=== PATIENT | male | born 1970 | race Caucasian/White ===

== ENCOUNTER 2018-05-30 09:18 | Emergency (ER) | payer OTHER, SELFPAY ==
[2018-05-30 09:27] VITALS: BMI 24.3
[2018-05-30 09:30] VITALS: TEMP 98.2
--- NOTE | 2018-05-30 10:07 | C.PDOC ---
History Of Present Illness Pt c/o posterior right elbow swelling. Time Seen by Provider: 05/30/18 09:33 Chief Complaint (Nursing): Upper Extremity Problem/Injury History Per: Patient Onset/Duration Of Symptoms: Days (about 3 weeks) Current Symptoms Are (Timing): Still Present Quality: Other (swelling) Severity: Moderate Additional History Per: Prior Records Past Medical History Reviewed: Historical Data, Nursing Documentation, Vital Signs Vital Signs: Last Vital Signs Temp 98.2 F 05/30/18 09:27 Pulse 60 05/30/18 09:27 Resp 18 05/30/18 09:27 BP 125/79 05/30/18 09:27 Pulse Ox 97 05/30/18 09:27 - Medical History PMH: No Chronic Diseases Family History: States: Unknown Family Hx - Social History Hx Tobacco Use: No Hx Alcohol Use: Yes Hx Substance Use: No - Immunization History Hx Tetanus Toxoid Vaccination: No Hx Influenza Vaccination: No Hx Pneumococcal Vaccination: No Review Of Systems Except As Marked, All Systems Reviewed And Found Negative. Constitutional: Negative for: Fever Cardiovascular: Negative for: Chest Pain Respiratory: Negative for: Shortness of Breath Gastrointestinal: Negative for: Vomiting, Abdominal Pain Musculoskeletal: Negative for: Neck Pain, Shoulder Pain, Hand Pain Skin: Negative for: Rash Neurological: Negative for: Weakness, Numbness Physical Exam - Physical Exam Appears: Non-toxic, No Acute Distress Skin: Normal Color, Warm, Dry, No Rash Head: Atraumatic, Normacephalic Eye(s): bilateral: Normal Inspection, PERRL, EOMI Neck: Normal ROM, Supple Extremity: Normal ROM, No Tenderness, Capillary Refill (wnl), No Deformity, Swelling (of right olecranon bursa.), Other (No erythema or warmth.) Extremity: Bilateral: Normal Color And Temperature Pulses: Right Radial: Normal Neurological/Psych: Oriented x3, Normal Motor, Normal Sensation ED Course And Treatment O2 Sat by Pulse Oximetry: 97 Pulse Ox Interpretation: Normal - Other Rad Right elbow x-rays X-Ray: Interpreted by Me, Viewed By Me Interpretation: No acute fx. Disposition Counseled Patient/Family Regarding: Studies Performed, Diagnosis, Need For Followup, Rx Given - Disposition Referrals: [facility] at [facility] [Outside] Marcie Flowers MD [Staff Provider] - Disposition: HOME/ ROUTINE Disposition Time: 10:08 Condition: STABLE Additional Instructions: Follow up with an orthopedic doctor or in the clinic for further evaluation and treatment. Return to the ER if you develop fever, redness, worsening of symptoms or if you have any other concerns. Prescriptions: Naproxen [Naprosyn] 1 tab PO BID PRN #20 tab PRN Reason: Pain Instructions: Olecranon Bursitis (DC) Print Language: PERSIAN - Clinical Impression Clinical Impression: Olecranon bursitis, right elbow
--- NOTE | 2018-05-30 10:17 | RAD ---
PROCEDURE: Radiographs of the right elbow. HISTORY: Swelling around olecranon. r/o fx / joint effusion COMPARISON: No prior. FINDINGS: BONES: Bone alignment and mineralization are normal. There is no acute displaced fracture or bone destruction. JOINTS: Normal. No osteoarthritis. SOFT TISSUES: There is moderate soft tissue swelling overlying the olecranon process. JOINT EFFUSION: None. OTHER FINDINGS: None. IMPRESSION: No acute displaced fracture, dislocation or joint effusion. Moderate soft tissue swelling overlying the olecranon process could represent olecranon bursitis in the appropriate clinical setting.
[2018-05-30 10:18] VITALS: BP 122/70; PULSE 66; RESP 16; O2SAT 98
== END 2018-05-30 10:17 | disposition home or self-care (01) ==
LOC: C.ER 09:18
DX: M70.21 Olecranon bursitis, right elbow (principal)

== ENCOUNTER 2018-06-15 14:59 | Emergency (ER) | payer SELFPAY ==
[2018-06-15 14:59] VITALS: BMI 24.3
[2018-06-15 15:06] VITALS: BP 119/76; PULSE 100; TEMP 98.2; O2SAT 96
--- NOTE | 2018-06-15 15:20 | C.PDOC ---
History Of Present Illness 47 year old male presents to the ER complaining of pain and swelling to the right elbow after bumping it against the wall one month ago. Patient was in the ER with same presentation on 05/30/18 where he was diagnosed with olecranon bursitis. Patient reports he went to the clinic and was seen by the mobile marketing specialist but pain persists. He denies any fevers, weakness, numbness, or any other associated symptoms. No new trauma. Time Seen by Provider: 06/15/18 15:15 Chief Complaint (Nursing): Upper Extremity Problem/Injury History Per: Patient, Family History/Exam Limitations: no limitations Onset/Duration Of Symptoms: Days Current Symptoms Are (Timing): Still Present Past Medical History Reviewed: Historical Data, Nursing Documentation, Vital Signs Vital Signs: Last Vital Signs Temp 98.2 F 06/15/18 15:01 Pulse 100 H 06/15/18 15:01 Resp 17 06/15/18 15:36 BP 119/76 06/15/18 15:01 Pulse Ox 96 06/15/18 16:01 - Medical History PMH: No Chronic Diseases Surgical History: No Surg Hx Family History: States: No Known Family Hx - Social History Hx Tobacco Use: No Hx Alcohol Use: No Hx Substance Use: No - Immunization History Hx Tetanus Toxoid Vaccination: No Hx Influenza Vaccination: No Hx Pneumococcal Vaccination: No Review Of Systems Except As Marked, All Systems Reviewed And Found Negative. Musculoskeletal: Positive for: Other (Right elbow pain) Neurological: Negative for: Weakness, Numbness Physical Exam - Physical Exam Appears: Non-toxic, No Acute Distress Skin: Normal Color, Warm, Dry Head: Atraumatic, Normacephalic Eye(s): bilateral: Normal Inspection, EOMI Nose: Normal Oral Mucosa: Moist Neck: Normal ROM, Supple Chest: Symmetrical Respiratory: No Accessory Muscle Use, Other (Speaking full sentences ) Extremity: Normal ROM (Right elbow), No Tenderness, Capillary Refill (<2 sec), Swelling (swelling to right bursa, no erythema) Extremity: Bilateral: Normal Color And Temperature Pulses: Left Radial: Normal, Right Radial: Normal Neurological/Psych: Oriented x3, Normal Speech, Normal Motor (5/5 strength against resistance ), Normal Sensation Gait: Steady ED Course And Treatment O2 Sat by Pulse Oximetry: 96 (RA) Pulse Ox Interpretation: Normal Progress Note: Previous XR reviewed and copy given to pt. Patient instructed to ice and rest right elbow. Patient instructed to follow up with product support specialist in 1-2 days. Disposition - Disposition Referrals: [facility] at [facility] [Outside] Kris Saldana MD [Staff Provider] - Disposition: HOME/ ROUTINE Disposition Time: 15:20 Condition: STABLE Additional Instructions: Rest and ice the north. Follow up with the bone doctor in 1-2 days. Descanse y hiele el north. Marco un seguimiento con el mdico de los huesos en 1-2 sauceda. Instructions: Olecranon Bursitis (DC) Forms: [employer] (Belizean) Print Language: SLOVENIAN - Clinical Impression Clinical Impression: Olecranon bursitis, right elbow - PA / MATERIAL SPREADER / Resident Statement MD/DO has reviewed & agrees with the documentation as recorded. - Scribe Statement The provider has reviewed the documentation as recorded by the Scribe Michela Almanza All medical record entries made by the Scribe were at my direction and personally dictated by me. I have reviewed the chart and agree that the record accurately reflects my personal performance of the history, physical exam, medical decision making, and the department course for this patient. I have also personally directed, reviewed, and agree with the discharge instructions and disposition.
[2018-06-15 15:36] VITALS: RESP 17
== END 2018-06-15 15:36 | disposition home or self-care (01) ==
LOC: C.ER 14:59
DX: M70.21 Olecranon bursitis, right elbow (principal)

== ENCOUNTER 2019-03-03 18:59 | Emergency (ER) | payer SELFPAY ==
[2019-03-03 18:59] VITALS: BMI 24.3
[2019-03-03 19:11] VITALS: O2SAT 97
[2019-03-03 23:17] LABS: ALB/GLOB RATIO 1.7 (1.0-2.1); ALBUMIN 4.1 g/dL (3.5-5.0); ALT/SGPT 39 U/L (21-72); AST/SGOT 42 U/L (17-59); BLOOD UREA NITROGEN 20 mg/dL (9-20); GFR NON-AFRICAN AMERICAN > 60; LIPASE 92 U/L (23-300)
[2019-03-03 23:44] LABS: BASO % 0.3 % (0.0-2.0); EOS # 0.1 K/uL (0.0-0.7); EOS % 2.1 % (0.0-4.0); HEMOGLOBIN 16.8 g/dL (12.0-18.0); LYMPH # 1.8 K/uL (1.0-4.3); LYMPH % 37.4 % (20.0-40.0); MEAN CELL VOLUME 97.8 fL (80.0-94.0); MEAN CORPUSCULAR HEMOGLOBIN 33.7 pg (27.0-31.0); MEAN CORPUSCULAR HGB CONC 34.5 g/dL (33.0-37.0); MEAN PLATELET VOLUME 12.1 fL (7.2-11.7); MONO # 0.4 K/uL (0.0-0.8); MONO % 8.9 % (0.0-10.0); NEUT # 2.5 K/uL (1.8-7.0); NEUT % 51.3 % (50.0-75.0); RBC 4.98 Mil/uL (4.40-5.90); RED CELL DISTRIBUTION WIDTH 12.4 % (11.5-14.5); WHITE BLOOD COUNT 4.9 K/uL (4.8-10.8)
[2019-03-04] MEDS ORDERED: Iodixanol 320 MG/ML 100 ML BOTTLE IV ONE (00:26)
--- NOTE | 2019-03-04 00:42 | C.PDOC ---
History Of Present Illness Patient reports diffuse abdominal pain for the past two days. Denies nausea, vomiting, diarrhea, fever, hematuria, urinary frequency, dysuria, or any other symptoms. Also reports seeing blood in his stool today. Time Seen by Provider: 03/03/19 21:38 Chief Complaint (Nursing): Abdominal Pain Past Medical History Reviewed: Historical Data, Nursing Documentation, Vital Signs Vital Signs: Last Vital Signs Temp 97.9 F 03/03/19 19:06 Pulse 63 03/03/19 19:06 Resp 18 03/03/19 19:06 BP 133/76 03/03/19 19:06 Pulse Ox 97 03/03/19 19:06 ALEXANDER Report Viewed: Yes - Medical History PMH: Denies: Chronic Kidney Disease Family History: States: Unknown Family Hx - Social History Hx Tobacco Use: No Hx Alcohol Use: Yes Hx Substance Use: No - Immunization History Hx Tetanus Toxoid Vaccination: No Hx Influenza Vaccination: No Hx Pneumococcal Vaccination: No Review Of Systems Except As Marked, All Systems Reviewed And Found Negative. Constitutional: Negative for: Fever, Chills Cardiovascular: Negative for: Chest Pain Respiratory: Negative for: Shortness of Breath Gastrointestinal: Positive for: Abdominal Pain, Hematochezia. Negative for: Nausea, Vomiting, Diarrhea Genitourinary: Negative for: Dysuria, Frequency Skin: Negative for: Rash Neurological: Negative for: Altered Mental Status Physical Exam - Physical Exam Appears: Well, Non-toxic, No Acute Distress Skin: Normal Color, Warm, Dry Head: Atraumatic, Normacephalic Eye(s): bilateral: Normal Inspection Cardiovascular: Rhythm Regular Respiratory: Normal Breath Sounds Gastrointestinal/Abdominal: Soft, Tenderness (minimal diffuse) Rectal: Heme Negative, No Melena, No Blood Streaked Stool, No Hemorrhoids, No Mass, No Tenderness Neurological/Psych: Oriented x3, Normal Speech ED Course And Treatment - Laboratory Results Result Diagrams: 03/03/19 23:05 03/03/19 22:57 Lab Results: Total Bilirubin 0.7 mg/dL (0.2-1.3) 03/03/19 22:57 AST 42 U/L (17-59) 03/03/19 22:57 ALT 39 U/L (21-72) 03/03/19 22:57 Alkaline Phosphatase 50 U/L (38-126) 03/03/19 22:57 Total Protein 6.5 g/dL (6.3-8.3) 03/03/19 22:57 Albumin 4.1 g/dL (3.5-5.0) 03/03/19 22:57 Globulin 2.4 gm/dL (2.2-3.9) 03/03/19 22:57 Albumin/Globulin Ratio 1.7 (1.0-2.1) 03/03/19 22:57 Lipase 92 U/L (23-300) 03/03/19 22:57 O2 Sat by Pulse Oximetry: 97 (ON RA) Pulse Ox Interpretation: Normal - CT Scan/US CT abd/pelvis Other Rad Studies (CT/US): Read By Radiologist, Radiology Report Reviewed CT/US Interpretation: CT SCAN OF THE ABDOMEN AND PELVIS WITH CONTRAST. CLINICAL HISTORY: Lower abdominal pain. TECHNIQUE: Multiple axial and coronal CT images were obtained through the abdomen and pelvis after administration of intravenous contrast material. COMMENTS: Diffuse colonic diverticulosis. Mild apparent thickening of the distal sigmoid colon. The liver is of uniform attenuation without mass or defect. There is no intra or extrahepatic biliary ductal dilatation. The spleen is normal. The gallbladder is within normal limits. The pancreas is of normal contour and attenuation characteristics. There is no evidence of adrenal mass. Both kidneys demonstrate prompt and equal ne phrograms. The kidneys are normal in size, shape and configuration. There is no evidence of renal or ureteral mass. No renal or ureteral calculi are identified. There is no hydroureter or hydronephrosis. No evidence for appendicitis. No evidence for small or large bowel obstruction. There is no evidence of abdominal ascites or lymphadenopathy. There is no evidence of intrinsic or extrinsic bladder mass. There is no pelvic ascites or lymphadenopathy. Images of the lung bases show no evidence of pleural or parenchymal mass. There are no pleural effusions. The bony structures are free of lytic or blastic lesions. IMPRESSION: Diffuse colonic diverticulosis. Mild apparent thickening of the distal sigmoid colon. Underdistention, spasm versus mild colitis. Thank you for your kind referral of this patient. . Electronically signed on Mar 04, 2019 1:04:11 AM EDT by: Royce Wright M.D., Certified by ABR, MSK, Neuroradiology Medical Decision Making Medical Decision Making: Patient given toradol ivp for pain. On re-eval patient lying in stretcher comfortably, in no distress. Lab and CT results discussed with patient. Stable for discharge home. Disposition - Disposition Disposition: HOME/ ROUTINE Disposition Time: 01:00 Condition: STABLE Additional Instructions: TANESHA WHITNEY, thank you for letting us take care of you today. Your provider was Lyssa Gomez MD and you were treated for STOMACH PAINS. The emergency medical care you received today was directed at your acute symptoms. If you were prescribed any medication, please fill it and take as directed. It may take several days for your symptoms to resolve. Return to the Emergency Department if your symptoms worsen, do not improve, or if you have any other problems. Please contact your doctor or call one of the physicians/clinics you have been referred to that are listed on the Patient Visit Information form that is included in your discharge packet. Bring any paperwork you were given at discharge with you along with any medications you are taking to your follow up visit. Our treatment cannot replace ongoing medical care by a primary care provider outside of the emergency department. Thank you for allowing the [facility] team to be part of your care today. If you had an X-Ray or CT scan: A Radiologist will review the ED reading if any change in treatment is needed we will contact you. If you had a blood, urine, or wound culture: It will take several days for the results, if any change in treatment is needed we will contact you. If you had an STI test: It will take 48 hours for the results. Please call after 1 week if you have not heard back. Instructions: Diverticulosis (DC) Forms: [employer] (Maltese) Print Language: CITIZEN OF [place] - Clinical Impression Clinical Impression: Diverticulosis
[2019-03-04 02:02] VITALS: RESP 20; TEMP 98.3
[2019-03-04 02:05] VITALS: BP 128/76; PULSE 90
--- NOTE | 2019-03-04 10:02 | CT ---
CT abdomen and pelvis History: Abdominal pain. Comparison: 07/08/2014 Technique: Multiple contiguous axial images were performed through the abdomen and pelvis with the use of intravenous contrast. Subsequently, sagittal and coronal reformatted images were obtained. This CT exam was performed using one or more of the following dose reduction techniques: Automated exposure control, adjustment of the mA and/or kV according to patient size, and/or use of iterative reconstruction technique. Findings: Scattered atelectasis at the lung bases and within the lingula. No pleural or pericardial effusion. Prominent liver with diffuse fatty infiltration. Focal area of low attenuation seen adjacent to the ligamentum teres measuring up 1.3 centimeters which may represent focal fatty sparing. Additional etiologies not excluded. Correlation with multiphasic contrast enhanced CT or MR may be helpful for further evaluation if clinically indicated. Contracted gallbladder. Spleen is preserved. Adrenal glands are preserved. Pancreas is preserved. Upper abdominal bowel is grossly preserved. Right kidney: No calculi or hydronephrosis. Left Kidney: No calculi or hydronephrosis. Urinary bladder is preserved. Heterogeneous and prominent prostate and seminal vesicles. Clinical correlation. Underdistended and or mildly thickened distal sigmoid colon. Fecal retention in the right and transverse colon. Appendix is within normal limits. Few shotty para-aortic and inguinal lymph nodes. Few shotty mesenteric lymph nodes. Degenerative changes in the spine. 1.3 centimeter rounded fat containing nodule in the midline lower pelvis on series 3, image 158, nonspecific. Impression: 1. Underdistention and or mild thickening of the distal sigmoid colon. Clinical correlation. 2. 1.3 centimeter rounded fat containing nodule in the midline lower pelvis on series 3, image 158, nonspecific. 3. Prominent liver with diffuse fatty infiltration. Focal area of low attenuation seen adjacent to the ligamentum teres measuring up 1.3 centimeters which may represent focal fatty sparing. Additional etiologies not excluded. Correlation with multiphasic contrast enhanced CT or MR may be helpful for further evaluation if clinically indicated. Additional findings as above. A preliminary report was generated at 1:04 a.m. on 03/04/[address] Royce Wright from [employer].
== END 2019-03-04 01:50 | disposition home or self-care (01) ==
LOC: C.ER 18:59
DX: K57.90 Diverticulosis of intestine, part unspecified, without perforation or abscess without bleeding (principal)
CPT/HCPCS: 74177; 80053; 83690; 85025; 99285; Q9967

== ENCOUNTER 2019-04-01 17:15 | Emergency (ER) | payer SELFPAY ==
[2019-04-01 17:15] VITALS: BMI 24.3
[2019-04-01] MEDS ORDERED: Sodium Chloride 0.9% 1,000 ML IV ONE (19:10)
[2019-04-01] MEDS ORDERED: Iohexol 240 (50 ml) PO ONE (19:11)
--- NOTE | 2019-04-01 19:15 | C.PDOC ---
History Of Present Illness 48 y/o male presents to ED for abdominal pain thats been on and off about for the past week, with rectal bleeding. Patient denies nausea, vomiting, dysuria. Patient had a CT scan last week that showed colitis. Chief Complaint (Nursing): Abdominal Pain History Per: Patient History/Exam Limitations: no limitations Onset/Duration Of Symptoms: Days Current Symptoms Are (Timing): Still Present Past Medical History Reviewed: Historical Data, Nursing Documentation, Vital Signs Vital Signs: Last Vital Signs Temp 98.4 F 04/01/19 17:18 Pulse 65 04/01/19 17:18 Resp 20 04/01/19 17:18 BP 112/76 04/01/19 17:18 Pulse Ox 98 04/01/19 17:18 Primary Care Provider: Dorota Spangler - Medical History PMH: Denies: Chronic Kidney Disease Family History: States: No Known Family Hx - Social History Hx Tobacco Use: No Hx Alcohol Use: No Hx Substance Use: No - Immunization History Hx Tetanus Toxoid Vaccination: Yes Hx Influenza Vaccination: No Hx Pneumococcal Vaccination: No Review Of Systems Except As Marked, All Systems Reviewed And Found Negative. Constitutional: Negative for: Fever, Chills Gastrointestinal: Positive for: Abdominal Pain, Other (Rectal bleeding). Negative for: Nausea, Vomiting Genitourinary: Negative for: Dysuria, Hematuria Musculoskeletal: Negative for: Back Pain Physical Exam - Physical Exam Appears: Non-toxic, No Acute Distress Skin: Warm, Dry Head: Atraumatic Eye(s): bilateral: Normal Inspection Oral Mucosa: Moist Neck: Supple Cardiovascular: Rhythm Regular, No Murmur Respiratory: Normal Breath Sounds, No Rales, No Rhonchi, No Wheezing Gastrointestinal/Abdominal: Soft, Tenderness (RUQ tenderness, mild bilateral lower quadrant tenderness) Rectal: No Blood Streaked Stool, Hemorrhoids (external hemorrhoid) Extremity: Bilateral: Normal ROM Neurological/Psych: Oriented x3, Normal Speech ED Course And Treatment - Laboratory Results Result Diagrams: 04/01/19 19:36 04/01/19 19:36 O2 Sat by Pulse Oximetry: 98 (RA) Pulse Ox Interpretation: Normal Medical Decision Making Medical Decision Making: Plan: --Abd/Pel CT --Labs --IV fluids 1L --Omnipaque PO Disposition Counseled Patient/Family Regarding: Diagnosis - Disposition Referrals: [facility] [Outside] Disposition: HOME/ ROUTINE Disposition Time: 23:04 Condition: STABLE Prescriptions: Dicyclomine [Bentyl] 10 mg PO QID #14 cap Instructions: Diverticulosis (DC), Bloody Stools, Adult (DC) Forms: [employer] (Citizen Of [place]) Print Language: VIETNAMESE - Clinical Impression Clinical Impression: Rectal bleeding, Diverticulosis - Scribe Statement The provider has reviewed the documentation as recorded by the Clarita Mendoza Provider Attestation: All medical record entries made by the Clarita were at my direction and personally dictated by me. I have reviewed the chart and agree that the record accurately reflects my personal performance of the history, physical exam, medical decision making, and the department course for this patient. I have also personally directed, reviewed, and agree with the discharge instructions and disposition.
[2019-04-01] MEDS ORDERED: Iohexol 240 (50 ml) ONE (19:38)
[2019-04-01] MEDS ORDERED: Sodium Chloride 0.9% 1,000 ML ONE (19:39)
[2019-04-01 19:44] LABS: BASO % 0.6 % (0.0-2.0); EOS # 0.1 K/uL (0.0-0.7); EOS % 2.6 % (0.0-4.0); HEMOGLOBIN 16.7 g/dL (12.0-18.0); LYMPH # 1.7 K/uL (1.0-4.3); LYMPH % 37.7 % (20.0-40.0); MEAN CELL VOLUME 96.2 fL (80.0-94.0); MEAN CORPUSCULAR HEMOGLOBIN 33.3 pg (27.0-31.0); MEAN CORPUSCULAR HGB CONC 34.6 g/dL (33.0-37.0); MEAN PLATELET VOLUME 12.2 fL (7.2-11.7); MONO # 0.5 K/uL (0.0-0.8); MONO % 10.2 % (0.0-10.0); NEUT # 2.2 K/uL (1.8-7.0); NEUT % 48.9 % (50.0-75.0); NRBC % 0.1 % (0.0-2.0); RBC 5.01 Mil/uL (4.40-5.90); RED CELL DISTRIBUTION WIDTH 12.3 % (11.5-14.5); WHITE BLOOD COUNT 4.5 K/uL (4.8-10.8)
[2019-04-01 19:59] LABS: INR 1.2; PROTHROMBIN TIME 13.5 SECONDS (9.7-12.2)
[2019-04-01 20:01] LABS: ALB/GLOB RATIO 1.7 (1.0-2.1); ALBUMIN 4.1 g/dL (3.5-5.0); ALT/SGPT 107 U/L (21-72); AST/SGOT 80 U/L (17-59); BLOOD UREA NITROGEN 18 mg/dL (9-20); CALCIUM 8.8 mg/dl (8.6-10.4); GFR NON-AFRICAN AMERICAN > 60; LIPASE 96 U/L (23-300)
[2019-04-01] MEDS ORDERED: Iodixanol 320 MG/ML 100 ML BOTTLE IV ONE (21:14)
[2019-04-01 21:50] VITALS: PULSE 60
[2019-04-01 23:20] VITALS: BP 121/81; RESP 18; TEMP 97.6; O2SAT 99
--- NOTE | 2019-04-02 08:44 | CT ---
Date of service: 04/01/2019 PROCEDURE: CT Abdomen and Pelvis with contrast HISTORY: Abdominal pain COMPARISON: 03/04/2019 TECHNIQUE: Multiple contiguous axial images were performed through the abdomen and pelvis with the use of intravenous contrast. Subsequently, sagittal and coronal reformatted images were obtained. Radiation dose: Total exam DLP = 613.03 mGy-cm. This CT exam was performed using one or more of the following dose reduction techniques: Automated exposure control, adjustment of the mA and/or kV according to patient size, and/or use of iterative reconstruction technique. FINDINGS: LOWER THORAX: Atelectasis at the lung bases. LIVER: Prominent liver with diffuse fatty infiltration. Again identified is a focal area of low attenuation seen adjacent to the ligamentum teres best seen on series 3 images 35 through 40 measuring 1.3 centimeters. This is of uncertain clinical etiology. This may represent some focal fatty sparing. Additional etiologies not excluded. Correlation with multiphasic contrast enhanced CT or MR may be helpful for further evaluation if clinically indicated. GALLBLADDER AND BILE DUCTS: Contracted gallbladder. PANCREAS: Unremarkable. No gross lesion or ductal dilatation. SPLEEN: Unremarkable. ADRENALS: Unremarkable. No mass. KIDNEYS AND URETERS: Unremarkable. No hydronephrosis. No solid mass. VASCULATURE: Unremarkable. No aortic aneurysm. No aortic atherosclerotic calcification or mural plaque present. BOWEL: Unremarkable. No obstruction. No gross mural thickening. Colonic diverticulosis. Moderate fecal retention in the colon. APPENDIX: Normal appendix. PERITONEUM: Unremarkable. No free fluid. No free air. LYMPH NODES: Few shotty para-aortic and inguinal lymph nodes. BLADDER: Unremarkable. REPRODUCTIVE: Heterogeneous and prominent prostate and seminal vesicles. Clinical correlation. BONES: Degenerative changes in the spine. OTHER FINDINGS: 1.3 centimeter rounded fat containing nodule in the midline lower pelvis best seen on series 3 image 152, nonspecific. Clinical correlation. IMPRESSION: 1. Moderate fecal retention in the colon. Colonic diverticulosis. 2. Prominent liver with diffuse fatty infiltration. Again identified is a focal area of low attenuation seen adjacent to the ligamentum teres best seen on series 3 images 35 through 40 measuring 1.3 centimeters. This is of uncertain clinical etiology. This may represent some focal fatty sparing. Additional etiologies not excluded. Correlation with multiphasic contrast enhanced CT or MR may be helpful for further evaluation if clinically indicated. 3. 1.3 centimeter rounded fat containing nodule in the midline lower pelvis best seen on series 3 image 152, nonspecific. Clinical correlation. A preliminary report was generated at 10:25 p.m. on 04/01/[address] Jorge Beaver from [employer].
== END 2019-04-01 23:20 | disposition home or self-care (01) ==
LOC: C.ER 17:15
DX: K57.90 Diverticulosis of intestine, part unspecified, without perforation or abscess without bleeding (principal); K62.5 Hemorrhage of anus and rectum
CPT/HCPCS: 74177; 80053; 83690; 85025; 85610; 85730; 86850; 86900; 99285; G0328; J7030; Q9966; Q9967

== ENCOUNTER 2019-04-06 08:06 | Outpatient (CLI) | payer SELFPAY | END 2019-04-06 08:07 | disposition home or self-care (01) | LOC: C.MRIC 08:06 | DX: K76.89 Other specified diseases of liver (principal) ==